=== PATIENT | male | born 1985 ===

== ENCOUNTER 2021-06-03 09:32 | Emergency (ER) | payer OTHER, SELFPAY ==
[2021-06-03 09:53] VITALS: BP 137/78; PULSE 64; RESP 18; TEMP 36.9; O2SAT 99; BMI 27.4
[2021-06-03 10:49] LABS: IDNOW Serial# 9DD0AD1C
[2021-06-03 10:50] LABS: COVID-19 Test Negative (Negative)
--- NOTE | 2021-06-03 11:12 | ED.GENADULT ---
HPI - General Adult General Chief complaint: General Medical Stated complaint: Covid test not feeling good Time Seen by Provider: 06/03/21 10:06 Source: patient Mode of arrival: ambulatory Limitations: no limitations History of Present Illness HPI narrative: 36-year-old male here with complaints of cough, runny nose, generalized malaise for several days.. No vomiting, diarrhea, chest pain, shortness of breath, fevers or chills. Girlfriend is here with similar symptoms. Seeking COVID test. Related Data Allergies Allergy/AdvReac Type Severity Reaction Status Date / Time No Known Allergies Allergy Unverified 07/19/20 15:37 Review of Systems Review of Systems: Yes all other systems are reviewed and are negative Constitutional: Constitutional: Reports no additional constitutional complaints, Denies body ache(s), Denies chills, Denies fever(s), Denies headache(s), Reports malaise and Denies weakness Eyes: Eyes: Reports no additional eye complaints and Denies change in vision ENT: Reports system reviewed and no additional complaints, except as documented, Denies dizziness, Denies headache(s), Denies nasal congestion, Reports nasal discharge and Denies neck pain Cardiovascular: Cardiovascular: Reports no additional cardiovascular complaints, Denies chest pain, Denies leg edema and Denies dyspnea Respiratory: Respiratory: Reports no additional respiratory complaints, Reports cough and Denies dyspnea Gastrointestinal: Gastrointestinal: Reports no additional gastrointestinal complaints, Denies abdominal pain, Denies diarrhea, Denies nausea and Denies vomiting Genitourinary: Genitourinary: Denies urinary incontinence Musculoskeletal: Musculoskeletal: Reports no additional musculoskeletal complaints, Denies back pain, Denies arthralgias, Denies joint swelling, Denies neck pain, Denies numbness and Denies tingling Integumentary/Breasts: Skin/Breast: Reports system reviewed and no additional complaints, except as docu and Denies rash Neurologic: Reports system reviewed and no additional complaints, except as documented, Denies Abnormal speech present, Denies dizziness, Denies headache(s), Denies numbness, Denies tingling and Denies weakness PMFSH Past Medical History Attestation statement: The following information was validated with the patient. Source: old records reviewed and nursing notes reviewed Medical History No known health problems Social History Social History Advance Directives: Yes Advance Directives Information Provided: Yes Advance Directives on File: No Physical Exam Vital Signs: Vital Signs: Last Vital Signs Temp 98.5 F 06/03/21 09:53 Pulse 64 06/03/21 09:53 Resp 18 06/03/21 09:53 BP 137/78 06/03/21 09:53 Pulse Ox 99 06/03/21 09:53 Body Mass Index 27.4 Const: General: cooperative, healthy appearing, comfortable and no acute distress Orientation/consciousness: patient oriented x3 Limitations: no limitations HENMT: Head: Yes normal to inspection Ears: hearing grossly normal bilaterally General nose exam: Normal external nose present Face and sinus: Yes normal facial exam Mouth: Normal oral and palatal mucosa present Throat: Yes posterior oropharynx normal Eyes: General: appearance normal, both eyes and all related structures Pupils: Equal, round and reactive pupils present Neck: Neck: Yes normal visual inspection Chest: Chest palpation & inspection: normal inspection of the chest Resp: Effort & Inspection: normal respiratory effort Auscultation: clear to auscultation bilaterally Cardio: Rate: regular rate Rhythm: regular rhythm Peripheral pulses: Peripheral pulses 2+ throughout GI: Inspection: Yes normal to inspection Palpation (GI): Soft to palpation and nontender Auscultation: normal bowel sounds Back/Spine/Pelvis: Thoracic/Lumbar Spine: thoracic and lumbar spine normal to inspection Skin: General skin exam: no rashes or lesions noted Neuro: General: patient oriented x3, no focal motor deficits and normal sensation to monofilament Cranial nerves: Yes Equal, round and reactive pupils present Cognition (Neuro): normal cognition Speech: No Abnormal speech present Gait exam (Neuro): Normal gait present Motor exam (neuro): 5/5 motor strength present throughout Extrem: General: Yes normal to inspection Course Course Course Narrative: URI symptoms x several days seeking covid test. Covid test negative. Well appearing. HD stable. Likely viral. Reviewed worrisome signs.symptoms with patient and when to return to the ED. Comfortable with discharge home. Medical Decision Making Medical Records Medical records reviewed: Yes I reviewed the patient's medical records. Lab Data Lab results reviewed: Yes I reviewed the patient's lab results. Labs: Lab Results 06/03/21 Range/Units 10:23 COVID-19 (SIXTO) Negative (Negative) COVID-19 Clin Com See Note Discharge Plan Discharge Clinical Impression: Acute viral syndrome Patient Disposition: Home, Self-Care Instructions: Viral Syndrome (ED) Additional Instructions: Increase fluids, rest Motrin or Tylenol for pain or fever Covid test negative Referrals: Physician,Unknown [Primary Care Provider] - 2 days (as needed) Stand Alone Forms: Work/School Release
== END 2021-06-03 11:52 | disposition home or self-care (01) ==
PROVIDERS: Nurse Practitioner Family; Emergency Provider Emergency Medicine
DX: B34.9 Viral infection, unspecified (principal); Z20.822 Contact with and (suspected) exposure to COVID-19; R05 Cough; R53.81 Other malaise
CPT/HCPCS: 36415; 87635; 99283

== ENCOUNTER 2023-03-29 13:51 | Emergency (ER) | payer OTHER, SELFPAY ==
[2023-03-29 14:17] VITALS: BP 106/57; PULSE 81; RESP 17; TEMP 36.1; O2SAT 94; BMI 26.5
[2023-03-29 15:10] LABS: COVID-19 Test Negative (Negative); IDNOW Serial# 9DB6401D; IDNOW Serial# BCCEAD1C; Influenza A Negative (Negative); Influenza B2 Negative (Negative)
--- NOTE | 2023-03-29 16:41 | ED_ITS ---
HPI - General Adult General Chief complaint: Upper Respiratory Symptoms Stated complaint: flu symptoms Time Seen by Provider: 03/29/23 14:31 Source: patient Mode of arrival: ambulatory Limitations: no limitations History of Present Illness HPI narrative: 38 yold male presents to the ED for flu like symptsom. He states his daughter and also have symptoms. Patient denies any chest pain or shortness of breath. Patient states no abdominal pain or rash. Related Data Previous Rx's Medication Instructions Recorded albuterol sulfate 90 mcg/actuation 2 puff inhalation Q4-6H PRN 03/29/23 aerosol inhaler (Ventolin HFA) shortness of breath or wheezing #8.5 grams naproxen 500 mg tablet 500 mg PO BID PRN pain 7 days #14 03/29/23 tabs Allergies Allergy/AdvReac Type Severity Reaction Status Date / Time No Known Allergies Allergy Unverified 07/19/20 15:37 Review of Systems Review of Systems: Body aches, chills, Yes all other systems are reviewed and are negative [facility] Past Medical History Medical History No known health problems Social History Social History Advance Directives: No Advance Directives Information Provided: Yes Physical Exam ED Vital Signs: Vital Signs - 24 hr 03/29/23 14:17 Temperature 97.0 F Pulse Rate 81 Respiratory Rate 17 Blood Pressure 106/57 L Pulse Oximetry 94 Oxygen Delivery Method Room Air BMI result Body Mass Index 26.5 Const General: cooperative, healthy appearing, comfortable, no acute distress, well developed, alert, awake and Physically active Orientation/consciousness: oriented to person, oriented to place, oriented to time and patient oriented x3 HENMT Head: Yes normal to inspection, Yes No palpable skull fracture present, Yes normocephalic, Yes atraumatic and No abrasion Eyes General: appearance normal, both eyes and all related structures Neck Neck: Yes normal visual inspection, Yes full ROM, Yes no lymphadenopathy, Yes no meningeal signs, Yes trachea midline, Yes supple, No anterior neck swelling and No tender Chest Chest palpation & inspection: normal inspection of the chest and normal palpation of entire chest wall Resp Effort & Inspection: normal respiratory effort and able to speak in complete sentences Auscultation: clear to auscultation bilaterally Cardio Jugular venous distension: no JVD Heart sounds: S1 normal heart sound present and S2 normal heart sound present GI Inspection: Yes normal to inspection and No abdominal wall ecchymosis Palpation (GI): Soft to palpation, not firm, nontender, no guarding and not rigid General: No CVA tenderness and Yes no CVA tenderness Back/Spine/Pelvis Back: no CVA tenderness, No CVA tenderness and No back tenderness Skin General skin exam: no rashes or lesions noted and elasticity normal Neuro General: oriented to person, oriented to place, oriented to time, patient oriented x3, gait normal, tone normal, moves all extremities, Normal light touch and pain sensation, no meningeal signs, no focal motor deficits, CN's II-XI intact bilaterally and normal sensation to monofilament Extrem General: Yes normal to inspection and Yes full ROM Psych Appearance: grossly normal, well kempt and not disheveled Course Course Course Narrative: COVID influenza ordered. Medications Administered Discontinued Medications Generic Name Dose Route Start Last Admin Trade Name Daltonq PRN Reason Stop Dose Admin Acetaminophen 975 mg 03/29/23 16:49 03/29/23 16:57 Acetaminophen 325 Mg Tablet PO 03/29/23 16:50 975 mg ONCE ONE Administration Medical Decision Making Medical Decision Making [facility] Narrative: 38-year-old male presents to the ED for flu like symptoms. Daughter and are positive for the flu. Patient denies any chest pain, shortness of breath, abdominal pain, ear pain, coughing, abdominal pain, or any symptoms. Patient requests albuterol pump refill. 02 saturation on monitor is normal 98%. Differential Diagnosis Differential Diagnoses: The differential diagnosis associated with the presentation includes (COVID, influenza, viral syndrome,) Lab Data [facility] Lab Attestation statement: I reviewed the patient's lab results. Labs: Lab Results 03/29/23 03/29/23 Range/Units 14:47 14:47 COVID-19 (SIXTO) Negative (Negative) COVID-19 Clin Com See Note Influenza Type A (DINESH) Negative (Negative) Influenza Type B (DINESH) Negative (Negative) Influenza A & B Note See Note Prescription Management I considered prescription management with: Pain Medication Discharge Plan Discharge Clinical Impression: Acute viral syndrome Patient Disposition: Home, Self-Care Instructions: Viral Syndrome (ED) Additional Instructions: You're COVID and influenza test came back negative. If continue to have symptoms you may get retested in a few days. Return to ED immediately for any chest pain, shortness of breath, weakness, dizziness, abdominal pain, dysuria, hematuria, coughing up blood, rash, or any other concerning symptoms. Prescriptions: New naproxen 500 mg tablet 500 mg PO BID PRN (Reason: pain) 7 Days Qty: 14 0RF albuterol sulfate [Ventolin HFA] 90 mcg/actuation HFA aerosol inhaler 2 puff inhalation Q4-6H PRN (Reason: shortness of breath or wheezing) Qty: 8.5 0RF Stand Alone Forms: Work/School Release Interventions: ED Discharge Assessment Last Done: 03/29/23 17:05 Discharge Date/Time: 03/29/23 17:05 Print Language: Turkmen
[2023-03-29] MEDS: Acetaminophen 325 MG TABLET 975 MG PO (16:57)
== END 2023-03-29 17:05 | disposition home or self-care (01) ==
PROVIDERS: Emergency Provider Internal Medicine
DX: B34.9 Viral infection, unspecified (principal); Z20.822 Contact with and (suspected) exposure to COVID-19; Z20.828 Contact with and (suspected) exposure to other viral communicable diseases
CPT/HCPCS: 87502; 87635; 99283

== ENCOUNTER → 2025-07-18 07:59 | Outpatient (BNVA) | payer SELFPAY | PROVIDERS: Visit Provider Emergency Medicine | DX: Z02.1 Encounter for pre-employment examination (principal); R76.11 Nonspecific reaction to tuberculin skin test without active tuberculosis ==